=== PATIENT | female | born 1960 | race Caucasian/White ===

== ENCOUNTER → 2019-11-20 | Outpatient (CLI) | payer OTHER ==
--- NOTE | 2019-11-20 12:48 | RADIOLOGY REPORT (SQ) ---
EXAM DESCRIPTION: KNEE LEFT 4 VIEWS IMAGES COMPLETED DATE/TIME: 11/20/2019 10:29 am REASON FOR STUDY: OSTEOARTHRITIS OF KNEE, UNSPECIFIED M17.9 OSTEOARTHRITIS OF KNEE, UNSPECIFIED COMPARISON: None. NUMBER OF VIEWS: Four views. TECHNIQUE: AP, lateral, and both oblique radiographic images acquired of the left knee. LIMITATIONS: None. FINDINGS: MINERALIZATION: Normal. BONES: No acute fracture or dislocation. No worrisome bone lesions. Tricompartmental degenerative tracy nges are present with medial compartment and patellofemoral marginal osteophytes. JOINT: No effusion. No chondrocalcinosis. Near complete loss of medial compartment joint height. OTHER: No other significant finding. IMPRESSION: Tricompartmental degenerative changes most significantly affecting the medial and patell ofemoral compartments. No evidence of acute injury. TECHNICAL DOCUMENTATION: JOB ID: [id number] [email or web address]- All Rights Reserved Reading location - IP/workstation name: [email or web address]
== END ==
LOC: OD 10:10
PROVIDERS: ATTEND Physician Assistant
DX: M17.9 Osteoarthritis of knee, unspecified (principal); M25.562 Pain in left knee